=== PATIENT | male | born 1980 | race African-American/Black ===

== ENCOUNTER 2023-01-10 02:49 | Emergency (ER) | payer OTHER ==
[~2023-01-10] VITALS: Ht 165.1 cm; Wt 79.4 kg
[2023-01-10] MEDS ORDERED: HYDROXYZINE 25 MG TABLET PO ONE (03:30)
[2023-01-10] MEDS ORDERED: HYDR50CA50 PO (03:40)
[2023-01-10 04:01] VITALS: BP 146/90; PULSE 76; RESP 16; O2SAT 98
== END 2023-01-10 04:04 | disposition home or self-care (01) ==
LOC: EDH 02:49
DX: R07.81 Pleurodynia (principal); Z90.49 Acquired absence of other specified parts of digestive tract